=== PATIENT | female | born 1950 | race Caucasian/White ===

== ENCOUNTER → 2017-11-22 | Outpatient (CLI) | payer BC, MEDICARE ==
[~2017-11-22] MED LIST: LIPITOR20 MG PO; LOSARTAN POTASS25 MG PO; METFORMIN HCL500 MG PO; SINGULAIR10 MG PO
--- NOTE | 2017-11-22 18:13 | Diagnostic Imaging Report ---
PROCEDURE: Frontal and lateral views of the chest. COMPARISON: Chest x-ray 09/29/2017. INDICATIONS: PNEUMONIA FINDINGS: Lines/tubes: None. Lungs: The lungs are well inflated. Bilateral peribronchial cuffing. There is no evidence of pneumonia or pulmonary edema. Pleura: Trace left right pleural effusion. Heart and mediastinum: The heart and the mediastinum are normal. Bones: No acute bony abnormality. IMPRESSION: 1. Peribronchial cuffing, likely viral etiology or reactive airway. 2. Trace left pleural effusion. Dictated by: Viet Lopes M.D. on 11/22/2017 at 18:22 Electronically approved by: Viet Lopes M.D. on 11/22/2017 at 18:22
== END ==
LOC: RAD 12:46
PROVIDERS: ATTEND Internal Medicine Critical Care Medicine
DX: J18.9 Pneumonia, unspecified organism (principal); D72.820 Lymphocytosis (symptomatic); J90 Pleural effusion, not elsewhere classified; J30.9 Allergic rhinitis, unspecified
CPT/HCPCS: 71020

== ENCOUNTER → 2018-07-06 | Outpatient (CLI) | payer MEDICARE ==
--- NOTE | 2018-07-06 15:33 | Diagnostic Imaging Report ---
Frontal and lateral views of the chest. HISTORY: Pleural effusion, pneumonia COMPARISON: Images from a chest radiograph dated the 2017, CT of the chest September 18, 2017 DISCUSSION: Soft tissue attenuation partially limits sensitivity of the exam. Lungs: Improved aeration of the left lung base. No evidence of a consolidative pneumonia or pulmonary alveolar edema. Pleura: Interval resolution of the trace left pleural effusion versus pleural thickening. Heart and mediastinum: The cardiomediastinal silhouette appears unremarkable. Bones: No acute osseous lesion. IMPRESSION: 1. No acute radiographic abnormality. 2. Interval resolution of the previous lesion described pulmonary edema/pneumonia and trace left pleural effusion versus pleural thickening. Signed by: Dr. Zheng Escobedo D.O., M.M.M. on 07/06/2018 3:30 PM
== END ==
LOC: RAD 13:03
PROVIDERS: ATTEND Internal Medicine Critical Care Medicine
DX: J18.9 Pneumonia, unspecified organism (principal); D72.820 Lymphocytosis (symptomatic); J90 Pleural effusion, not elsewhere classified; J30.9 Allergic rhinitis, unspecified
CPT/HCPCS: 71046

== ENCOUNTER → 2024-08-31 | Outpatient (REF) | payer MEDICARE | LOC: MRI 12:38 | PROVIDERS: ATTEND Family Medicine | DX: M25.511 Pain in right shoulder (principal); S46.801A Unspecified injury of other muscles, fascia and tendons at shoulder and upper arm level, right arm, initial encounter; G89.29 Other chronic pain ==